=== PATIENT | male | born 1995 | race Asian ===

== ENCOUNTER 2019-12-02 23:22 | Emergency (ER) | payer OTHER ==
[~2019-12-02] VITALS: Ht 170.2 cm; Wt 54.0 kg
[2019-12-02 23:54] VITALS: BP 119/73
== END 2019-12-03 02:20 | disposition left against medical advice (07) ==
LOC: ER 23:22
DX: R04.0 Epistaxis (principal); Z53.21 Procedure and treatment not carried out due to patient leaving prior to being seen by health care provider